=== PATIENT | male | born 1975 | race Caucasian/White ===

== ENCOUNTER → 2021-12-26 | Outpatient (CLI) | payer OTHER | LOC: CT 07:44 | DX: R10.13 Epigastric pain (principal); R10.11 Right upper quadrant pain; C15.9 Malignant neoplasm of esophagus, unspecified; R91.8 Other nonspecific abnormal finding of lung field | CPT/HCPCS: 36415; 71260; 82565; 84520; Q9967 ==

== ENCOUNTER 2022-03-25 10:55 | Emergency (ER) | payer OTHER ==
[2022-03-25 11:23] LABS: HEMOGLOBIN 14.1 gm/dl (14.0-17.5); RED BLOOD COUNT 4.74 M/UL (4.20-5.50)
[2022-03-25 11:55] LABS: BUN/CREATININE RATIO 23 (0-10)
== END 2022-03-25 12:52 | disposition left against medical advice (07) ==
LOC: ER1 10:55
PROVIDERS: Physician Assistant
DX: R07.89 Other chest pain (principal); R10.13 Epigastric pain; R79.1 Abnormal coagulation profile; E78.5 Hyperlipidemia, unspecified; F17.200 Nicotine dependence, unspecified, uncomplicated; Z85.01 Personal history of malignant neoplasm of esophagus; Z88.8 Allergy status to other drugs, medicaments and biological substances
CPT/HCPCS: 80053; 82550; 82553; 83690; 84484; 85025; 85379; 93005; 99283; J7030; Q0177; Q9967